=== PATIENT | female | born 1980 ===

== ENCOUNTER 2018-10-24 15:53 | Emergency (ER) | payer OTHER ==
--- NOTE | 2018-10-24 16:53 | UC ---
Cardiac HPI - HPI Summary HPI Summary: 3 DAYS OF INTERMITTENT MIDSTERNAL/EPIGASTRIC PAIN DESCRIBED STABBING. IT IS ACCOMPANIED BY DIZZINESS AND PALPITATIONS. SHE FEELS LIKE HER HEART IS FLUTTERING AND SKIPPING BEATS. EPISODES LAST A FEW MINUTES AND THEN IMPROVE ALTHOUGH PATIENT REPORTS A LOW LEVEL FEELING OF CHEST DISCOMFORT CONSTANTLY FOR THE PAST FEW DAYS. STATES HER SYMPTOMS ALWAYS OCCUR AFTER EATING BUT HAVE ALSO HAPPENED A COUPLE OF TIMES INDEPENDENT OF EATING. SHE HAS A HISTORY OF REFLUX WELL PANIC ATTACKS AND SHE IS UNSURE IF THIS IS PLAYING INTO HER SYMPTOMS. SHE ALSO HAS A HISTORY OF SVT STATUS POST CARDIAC ABLATION IN 2017. - History of Current Complaint Chief Complaint: UCChestPain Stated Complaint: CHEST PAIN DIZZINESS Time Seen by Provider: 10/24/18 16:14 Hx Obtained From: Patient Hx Last Menstrual Period: 10/23/18 Onset/Duration: Sudden Onset, Lasting Days, Still Present Initial Severity: Moderate Current Severity: Moderate Pain Intensity: 4 Chest Pain Location: Mid Sternal Character: Fluttering, Skipped Beats, Pressure/Squeezing Aggravating Factor(s): Nothing Alleviating Factor(s): Spontaneous Resolution Associated Signs & Symptoms: Positive: Chest Pain, Anxiety, Dizziness, Palpitations - Allergy/Home Medications Allergies/Adverse Reactions: Allergies Allergy/AdvReac Type Severity Reaction Status Date / Time amoxicillin Allergy Rash Verified 10/24/18 16:11 Penicillins Allergy Rash Verified 10/24/18 16:11 Home Medications: Home Medications Omeprazole 1 cap DAILY 10/24/18 [History Confirmed 10/24/18] PMH/Surg Hx/FS Hx/Imm Hx Other Cardiovascular History: SVT S/P ABLATION 2016 Respiratory History: Asthma GI/ History: Gastroesophageal Reflux - Surgical History Surgical History: Yes Surgery Procedure, Year, and Place: CARDIAC ABLATION, NOVEMBER 2016 - Family History Known Family History: Positive: Hypertension Family History: CVA - Social History Alcohol Use: Rare Substance Use Type: None Smoking Status (MU): Never Smoked Tobacco Review of Systems All Other Systems Reviewed And Are Negative: Yes Constitutional: Positive: Negative Skin: Positive: Negative Respiratory: Positive: Negative Cardiovascular: Positive: Palpitations, Chest Pain Gastrointestinal: Positive: Nausea Neurological: Positive: Other - DIZZY Physical Exam Triage Information Reviewed: Yes Appearance: Well-Appearing, No Pain Distress, Well-Nourished Vital Signs: Initial Vital Signs Temp 98.2 F 10/24/18 16:12 Pulse 70 10/24/18 16:12 Resp 16 10/24/18 16:12 BP 106/73 10/24/18 16:12 Pulse Ox 99 10/24/18 16:12 Vital Signs Reviewed: Yes Eyes: Positive: Conjunctiva Clear ENT: Positive: Hearing grossly normal Neck: Positive: Supple Respiratory Exam: Normal Cardiovascular Exam: Normal Abdomen Description: Positive: Soft Musculoskeletal: Positive: No Edema Neurological: Positive: Alert Psychological: Positive: Age Appropriate Behavior Skin: Negative: Rashes Diagnostics - EKG Cardiac Rate: NL - 63 BPM Cardiac Rhythm: Sinus: Normal Ectopy: None ST Segment: Normal - Assessment/Plan Course Of Treatment: PT WITH 3 DAYS OF CHEST PAIN, PALPITATIONS, DIZZINESS. HAS A H/O SVT S/P ABLATION, GERD AND ANXIETY. SX MAY BE DUE TO GERD AND ANXIETY BUT NEED TO R/O CARDIAC ETIOLOGY. PT OFFERED TRANSPORT TO THE ED BY AMBULANCE BUT DECLINES. ADVISED THAT BY NOT TRAVELING IN A MONITORED SETTING SHE COULD BE RISKING WORSENING OF HER CONDITION THAT COULD POSE A THREAT TO HER LIFE, HEALTH AND MEDICAL SAFETY. SHE VERBALIZES UNDERSTANDING AND CONTINUES TO DECLINE AMBULANCE TRANSFER. - Clinical Impression Provider Diagnosis: Chest pain, Palpitations Discharge - Sign-Out/Discharge Documenting (check all that apply): Patient Departure All imaging exams completed and their final reports reviewed: No Studies - Discharge Plan Condition: Stable Disposition: TRANS HIGHER LVL OF CARE FAC Patient Education Materials: Chest Pain (ED), Heart Palpitations (ED) Referrals: No Primary Care Phys,NOPCP [Primary Care Provider] - Additional Instructions: GO DIRECTLY TO [facility] ED FROM HERE FOR FURTHER EVALUATION. YOU HAVE DECLINED TRANSFER TO THE ED BY AMBULANCE. BE ADVISED THAT BY NOT TRAVELING IN A MONITORED SETTING YOU COULD BE RISKING WORSENING OF YOUR CONDITION THAT COULD POSE A THREAT TO YOUR LIFE, HEALTH AND MEDICAL SAFETY. - Billing Disposition and Condition Condition: STABLE Disposition: Trans Higher Lvl of Care Fac
== END 2018-10-24 17:04 | disposition short-term general hospital (02) ==
LOC: UCEAST 15:53
DX: R07.9 Chest pain, unspecified (principal); R00.2 Palpitations; R42 Dizziness and giddiness; J45.909 Unspecified asthma, uncomplicated; F41.9 Anxiety disorder, unspecified; K21.9 Gastro-esophageal reflux disease without esophagitis; Z79.899 Other long term (current) drug therapy; Z88.0 Allergy status to penicillin; Z86.79 Personal history of other diseases of the circulatory system
CPT/HCPCS: 93005; 99203; G0463

== ENCOUNTER → 2018-10-24 17:20 | Emergency (ER) | payer OTHER ==
--- NOTE | 2018-10-24 17:55 | ED ---
HPI Cardiac - HPI Summary HPI Summary: Patient is a 38 y/o F presenting to ED with episodes of mid sternal "stabbing" chest pain, chest "fluttering", and dizziness for the past few days. Episodes of palpitations last a few minutes but chest discomfort is noted to have been constant for the past few days. Hx of SVT, ablation two years ago, as well as GERD. She denies burning in chest/epigastric area, sour tasted in mouth. SOB, fever, vomiting, diarrhea are denied. Patient has been taking omeprazole over the past few days. She notes that eating aggravates Sx and reports poor PO take recently. On triage, pain is rated 5/10, nothing is noted to aggravate/ alleviate Sx. Home medications and allergies are reviewed. - History of Current Complaint Chief Complaint: EDChestPainROMI Stated Complaint: CHEST PAIN FROM [facility] Time Seen by Provider: 10/24/18 17:43 Hx Obtained From: Patient Hx Last Menstrual Period: 10/23/18 Onset/Duration: Started Days Ago - few days ago, Still Present Timing: Constant - chest pain, Intermittent - palpitations, Lasting Minutes - palpitations, Lasting Days - chest pain Current Severity: Mild - 4/10 Pain Intensity: 4 Pain Scale Used: 0-10 Numeric - 4/10 Chest Pain Location: Mid Sternal Chest Pain Radiates: No Character: Fluttering, Sharp/Stabbing Aggravating Factor(s): Nothing Alleviating Factor(s): Nothing Associated Signs and Symptoms: Positive: Chest Pain, Dizziness, Palpitations, Other: - poor PO intake, no diarrhea, no sour taste in mouth, no burning at chest/epigastric area. Negative: Shortness of Breath, Fever, Vomiting - Allergy/Home Medications Allergies/Adverse Reactions: Allergies Allergy/AdvReac Type Severity Reaction Status Date / Time amoxicillin Allergy Rash Verified 10/24/18 17:33 Penicillins Allergy Rash Verified 10/24/18 17:33 PMH/Surg Hx/FS Hx/Imm Hx Cardiovascular History: Reports: Hx Supraventricular Ventricular Tachycardia GI History: Reports: Hx Gastroesophageal Reflux Disease Sensory History: Denies: Hx Legally Blind, Hx Deafness Opthamlomology History: Denies: Hx Legally Blind EENT History: Denies: Hx Deafness - Surgical History Surgery Procedure, Year, and Place: CARDIAC ABLATION, NOVEMBER 2016 Infectious Disease History: No Infectious Disease History: Denies: Traveled Outside the [place] in Last 30 Days - Family History Known Family History: Positive: Hypertension Family History: CVA - Social History Alcohol Use: Rare Substance Use Type: Reports: None Smoking Status (MU): Never Smoked Tobacco Review of Systems Constitutional: Other - NEGATIVE - SOUR TASTE IN MOUTH, BURNING AT CHEST/ EPIGASTRIC AREA Negative: Fever Positive: Palpitations, Chest Pain Negative: Shortness Of Breath Gastrointestinal: Other - POSITIVE - POOR PO INTAKE Negative: Vomiting, Diarrhea Neurological: Other - POSITIVE - DIZZINESS All Other Systems Reviewed And Are Negative: Yes Physical Exam - Summary Physical Exam Summary: VITAL SIGNS: Reviewed. GENERAL: Patient is a well-developed and nourished female who is lying comfortable in the stretcher. Patient is not in any acute respiratory distress. HEAD AND FACE: No signs of trauma. No ecchymosis, hematomas or skull depressions. No sinus tenderness. EYES: PERRLA, EOMI x 2, No injected conjunctiva, no nystagmus. EARS: Hearing grossly intact. Ear canals and tympanic membranes are within normal limits. MOUTH: Oropharynx within normal limits. NECK: Supple, trachea is midline, no adenopathy, no JVD, no carotid bruit, no c- spine tenderness, neck with full ROM. CHEST: Symmetric, no tenderness at palpation LUNGS: Clear to auscultation bilaterally. No wheezing or crackles. CVS: Regular rate and rhythm, S1 and S2 present, no murmurs or gallops appreciated. ABDOMEN: Soft, non-tender. No signs of distention. No rebound no guarding, and no masses palpated. Bowel sounds are normal. EXTREMITIES: FROM in all major joints, no edema, no cyanosis or clubbing. NEURO: Alert and oriented x 3. No acute neurological deficits. Speech is normal and follows commands. SKIN: Dry and warm Triage Information Reviewed: Yes Vital Signs On Initial Exam: Initial Vitals Temp Pulse Resp BP Pulse Ox 98.9 F 62 16 110/75 99 10/24/18 17:29 10/24/18 17:29 10/24/18 17:29 10/24/18 17:29 10/24/18 17:29 Vital Signs Reviewed: Yes Diagnostics - Vital Signs Vital Signs Temp Pulse Resp BP Pulse Ox 10/24/18 17:29 98.9 F 62 16 110/75 99 - Laboratory Result Diagrams: 10/24/18 18:08 10/24/18 18:08 Lab Statement: Any lab studies that have been ordered have been reviewed, and results considered in the medical decision making process. - Radiology CXR Radiology Interpretation Completed By: Radiologist Summary of Radiographic Findings: IMPRESSION: NO EVIDENCE FOR ACTIVE CARDIOPULMONARY DISEASE. THIS REPORT WAS REVIEWED BY ED PHYSICIAN. - EKG 1747 Cardiac Rate: Bradycardia - rate of 58 BPM EKG Rhythm: Sinus Bradycardia Summary of EKG Findings: EKG showed sinus bradycardia with rate of 58 BPM, no ST elevation, normal axis. Re-Evaluation - Re-Evaluation First Eval Re-Evaluation Time: 20:34 Comment: Patient states that she does not want to wait for second troponin, she will be discharged to home. I discussed all the findings and test results with the patient. Patient was instructed to return to the emergency room immediately if any of the symptoms return or worsens. Plan of care was discussed with the patient and understands and agrees. All questions were answered at patient satisfaction. There were no further complaints or concerns. Lung exam before discharge: CTA B/L. Good air exchange. No wheezing or crackles heard. CVS: S1 and S2 present. No murmurs appreciated. Patient is alert and oriented x 3. Patient is hemodynamically stable. Patient will be discharged home with follow up PCP in the next 2-3 days Disposition - Course Assessment/Plan: Patient is a 38 y/o F presenting to ED with episodes of mid sternal "stabbing" chest pain, chest "fluttering", and dizziness for the past few days. Episodes of palpitations last a few minutes but chest discomfort is noted to have been constant for the past few days. Hx of SVT, ablation two years ago, as well as GERD. She denies burning in chest/epigastric area, sour tasted in mouth. SOB, fever, vomiting, diarrhea are denied. Patient has been taking omeprazole over the past few days. She notes that eating aggravates Sx and reports poor PO take recently. Blood work without any significant abnormality. Troponin is 0.00. Chest x-ray shows no acute pathology. EKG is a normal sinus rhythm without any ST elevations. The patient did not want to wait for second troponin however that she doesnt have any comorbidities therefore the patient will be discharged home with follow-up with primary care physician. I discussed all the findings and test results with the patient. Patient was instructed to return to the emergency room immediately if any of the symptoms return or worsens. Plan of care was discussed with the patient and understands and agrees. All questions were answered at patient satisfaction. There were no further complaints or concerns. Lung exam before discharge: CTA B/ L. Good air exchange. No wheezing or crackles heard. CVS: S1 and S2 present. No murmurs appreciated. Patient is alert and oriented x 3. Patient is hemodynamically stable. Patient will be discharged home with follow up PCP in the next 2-3 days - Diagnoses Provider Diagnoses: Atypical chest pain Discharge - Sign-Out/Discharge Documenting (check all that apply): Patient Departure - discharge Patient Received Moderate/Deep Sedation with Procedure: No - NO PROCEDURES DONE - Discharge Plan Condition: Stable Disposition: HOME Patient Education Materials: Chest Pain (ED) Referrals: [facility] [Outside] - 3 Days Additional Instructions: RETURN TO EMERGENCY DEPARTMENT WITH ANY NEW OR WORSENING SYMPTOMS. FOLLOW UP WITH PRIMARY CARE PHYSICIAN WITHIN THREE DAYS. - Billing Disposition and Condition Condition: STABLE Disposition: Home - Attestation Statements Document Initiated by Laisha: Yes Documenting Scribe: KARAN LINARES Provider For Whom Laisha is Documenting (Include Credential): APRIL KNOTT MD Scribe Attestation: I, connor LOGANibed for APRIL KNOTT MD on 10/25/18 at 1249. Scribe Documentation Reviewed: Yes Provider Attestation: The documentation as recorded by the KARAN peter accurately reflects the service I personally performed and the decisions made by me, APRIL KNOTT MD Status of Scribe Document: Viewed
[2018-10-24 18:15] LABS: ABS Basophils 0 10^3/ul (0-0.2); ABS Eosinophils 0 10^3/ul (0-0.6); ABS Lymphocytes 1.6 10^3/ul (1.0-4.8); ABS Monocytes 0.5 10^3/ul (0-0.8); ABS Neutrophils 4.4 10^3/ul (1.5-7.7); ABS Nucleated RBC 0 10^3/ul; Eosinophil % 0.4 %; Hematocrit 37 % (35-47); Hemoglobin 12.3 g/dl (12.0-16.0); Lymphocyte % 24.7 %; Mean Corpuscular HGB Conc 34 g/dl (31-36); Mean Corpuscular Hemoglobin 31 pg (27-31); Mean Corpuscular Volume 94 fL (80-97); Mean Platelet Volume 7.6 fL (7.4-10.4); Nucleated Red Blood Cells % 0; Platelet Count 219 10^3/ul (150-450); Red Blood Count 3.91 10^6/ul (4.00-5.40); Red Cell Distribution Width 13 % (10.5-15); White Blood Count 6.6 10^3/ul (3.5-10.8)
[2018-10-24 18:32] LABS: Albumin 4.6 g/dL (3.2-5.2); Albumin/Globulin Ratio 1.8 (1-3); BUN/Creatinine Ratio 13.2 (8-20); Calcium 9.1 mg/dL (8.6-10.3); EGFR African American 102.5 (>60); EGFR Non-African American 84.7 (>60); Globulin 2.6 g/dL (2-4); Magnesium 2.3 mg/dL (1.9-2.7); Potassium 3.6 mmol/L (3.5-5.0); Total Bilirubin 0.6 mg/dL (0.2-1.0); Total Protein 7.2 g/dL (6.4-8.9)
[2018-10-24 18:36] LABS: CKMB ng/mL 0.7 ng/mL (0.6-6.3)
[2018-10-24 19:30] LABS: TSH (Thyroid Stimulating Horm) 3.1 mcIU/mL (0.34-5.60)
== END | disposition home or self-care (01) ==
LOC: ED 17:20
DX: R07.89 Other chest pain (principal); R42 Dizziness and giddiness; R00.2 Palpitations; Z88.0 Allergy status to penicillin
CPT/HCPCS: 36415; 71046; 80053; 82550; 82553; 83605; 83735; 83880; 84443; 84484; 85025; 93005; 99282